=== PATIENT | female | born 1960 | race American Indian/Alaskan Native ===

== ENCOUNTER 2019-02-20 00:28 | Emergency (ER) | payer OTHER ==
--- NOTE | 2019-02-20 01:03 | XRay Report ---
PROCEDURE: XR CHEST ROUTINE 2V TECHNIQUE: PA and lateral chest radiographs were obtained. HISTORY: MANUEL COMPARISONS: None. FINDINGS: Heart: Normal. Mediastinum/Vessels: Normal. Lungs/Pleural space: Normal. Bony thorax: No acute osseous abnormality. IMPRESSION: Normal examination. This document is electronically signed by Justyna Strickland DO., February 20 2019 01:01:14 AM ET
[2019-02-20] MEDS ORDERED: PROVENTIL IH ONE (01:05)
[2019-02-20] MEDS ORDERED: ATROVENT IH ONE (01:05)
[2019-02-20] MEDS ORDERED: SOLU-Medrol IV ONE (01:05)
[2019-02-20] MEDS ORDERED: MAGNESIUM SULFATE 2GM/50ML 2 GM/50 ML BAG IV ONE (01:05)
--- NOTE | 2019-02-20 01:09 | Emergency Department Report ---
ED Shortness of Breath HPI - General Chief Complaint: Dyspnea/Respdistress Stated Complaint: MANUEL Time Seen by Provider: 02/20/19 01:00 Source: patient Mode of arrival: Ambulatory Limitations: No Limitations - History of Present Illness Initial Comments: 59-year-old female patient of asthma who presents to ED with complaint of shortness of breath 3 days. Patient says her symptoms began as an upper respiratory infection, which triggered her asthma. She reports productive cough, wheezing. Denies fever. Patient reports no relief at home with her in halers or breathing treatments. Reports tobacco use. PCP: johnny MEJIA Complaint: "asthma attack" -: days(s) (3) Severity: moderate Consistency: constant Improves With: nothing Worsens With: nothing Known History Of: asthma Context: recent URI Associated Symptoms: cough, sputum production - Related Data Home Oxygen Therapy: No Home Medications Medication Instructions Recorded Confirmed Last Taken ALBUTEROL Inhaler (OR & NICU) 2 puff IH QID PRN 07/22/16 07/22/16 07/22/16 [Proair] Allergies Allergy/AdvReac Type Severity Reaction Status Date / Time No Known Allergies Allergy Unverified 07/22/16 06:21 ED Review of Systems ROS: Stated complaint: MANUEL Other details as noted in HPI Comment: All other systems reviewed and negative Constitutional: denies: chills, fever Respiratory: cough, shortness of breath, wheezing Cardiovascular: denies: chest pain ED Past Medical Hx - Past Medical History Previous Medical History?: Yes Hx Hypertension: Yes Hx Asthma: Yes - Surgical History Past Surgical History?: Yes Additional Surgical History: x3; "stomach surgery" - Social History Smoking Status: Current Every Day Smoker Substance Use Type: None - Medications Home Medications: Home Medications Medication Instructions Recorded Confirmed Last Taken Type ALBUTEROL Inhaler (OR & NICU) 2 puff IH QID PRN 07/22/16 07/22/16 07/22/16 History [Proair] ED Physical Exam - General Limitations: No Limitations General appearance: alert - Head Head exam: Present: atraumatic, normocephalic - Eye Eye exam: Present: normal appearance - ENT ENT exam: Present: mucous membranes moist - Neck Neck exam: Present: normal inspection - Respiratory Respiratory exam: Present: respiratory distress, wheezes, decreased breath sounds - Cardiovascular Cardiovascular Exam: Present: normal rhythm, tachycardia - GI/Abdominal GI/Abdominal exam: Present: soft. Absent: distended - Extremities Exam Extremities exam: Present: normal inspection. Absent: pedal edema, calf tenderness - Neurological Exam Neurological exam: Present: alert, oriented X3 - Psychiatric Psychiatric exam: Present: normal affect, normal mood - Skin Skin exam: Present: warm, dry, intact, normal color ED Course Vital Signs 02/20/19 02/20/19 02/20/19 00:32 01:00 01:09 Temperature 98.5 F 98.6 F Pulse Rate 111 H 98 H 102 H Pulse Rate [ Anterior] Respiratory 18 17 19 Rate Respiratory Rate [Anterior] Blood Pressure 152/84 141/83 Blood Pressure 141/83 [Left] O2 Sat by Pulse 86 89 92 Oximetry 02/20/19 02/20/19 02/20/19 01:30 01:50 02:00 Temperature Pulse Rate 93 H 87 Pulse Rate [ 75 Anterior] Respiratory 28 H 20 Rate Respiratory 18 Rate [Anterior] Blood Pressure 156/91 131/79 Blood Pressure [Left] O2 Sat by Pulse 91 96 Oximetry 02/20/19 02/20/19 02/20/19 02:30 03:00 03:30 Temperature Pulse Rate 80 86 76 Pulse Rate [ Anterior] Respiratory 24 25 H 22 Rate Respiratory Rate [Anterior] Blood Pressure 143/78 145/90 145/84 Blood Pressure [Left] O2 Sat by Pulse 95 95 94 Oximetry 02/20/19 04:00 Temperature Pulse Rate 113 H Pulse Rate [ Anterior] Respiratory 20 Rate Respiratory Rate [Anterior] Blood Pressure 150/74 Blood Pressure [Left] O2 Sat by Pulse 95 Oximetry ED Medical Decision Making - Lab Data Result diagrams: 02/20/19 01:17 02/20/19 01:17 - EKG Data -: EKG Interpreted by Ar EKG shows normal: sinus rhythm, axis Rate: tachycardia (rate 106) - Radiology Data Radiology results: report reviewed, image reviewed - Medical Decision Making - pt feeling much better following nebs and meds - however, remains hypoxic at approx 88% RA - advised admission due to hypoxia, however pt refused - I explained risks of leaving, including worsening hypoxia, respiratory arrest, and ; at bedside and attempted to convince pt to stay - pt understands, states she cannot stay b/c she does not have insurance - AMA form signed, pt left prior to receiving any paperwork or prescriptions - Differential Diagnosis asthma, pneumonia, pulm edema Critical Care Time: Yes Critical care time in (mins) excluding proc time.: 35 Critical care attestation.: If time is entered above; I have spent that time in minutes in the direct care of this critically ill patient, excluding procedure time. Critical Care Time: 35 minutes ED Disposition Clinical Impression: Asthma with acute exacerbation, Hypoxia Disposition: LEFT AGAINST MED ADVICE Is pt being admited?: No Condition: Undetermined Referrals: CUCA DIGGS MD [Primary Care Provider] - 3-5 Days Forms: AMA Form
[2019-02-20 01:52] LABS: Basophils % (Auto) 0.4 % (0.0-1.8); Eosinophils # (Auto) 0.2 K/mm3 (0.0-0.4); Eosinophils % (Auto) 2.7 % (0.0-4.3); Hematocrit 40.6 % (30.3-42.9); Hemoglobin 13.2 gm/dl (10.1-14.3); Lymphocytes # (Auto) 1.9 K/mm3 (1.2-5.4); Lymphocytes % (Auto) 26.9 % (13.4-35.0); Mean Corpuscular HGB Conc 33 % (30-34); Mean Corpuscular Volume 86 fl (79-97); Monocytes # (Auto) 0.7 K/mm3 (0.0-0.8); Monocytes % (Auto) 10.3 % (0.0-7.3); Platelet Count 126 K/mm3 (140-440); Red Blood Count 4.72 M/mm3 (3.65-5.03); Red Cell Distribution Width 15.8 % (13.2-15.2)
[2019-02-20 02:06] LABS: BUN/Creatinine Ratio 14; Blood Urea Nitrogen 10 mg/dL (7-17); Calcium 9.1 mg/dL (8.4-10.2); Hemolysis Index 5
[2019-02-20 04:54] VITALS: BP 150/74
== END 2019-02-20 05:35 | disposition left against medical advice (07) ==
LOC: ED 00:28
DX: J45.901 Unspecified asthma with (acute) exacerbation (principal); R09.02 Hypoxemia; I10 Essential (primary) hypertension; F17.200 Nicotine dependence, unspecified, uncomplicated; Z98.890 Other specified postprocedural states
CPT/HCPCS: 36415; 71046; 80048; 85025; 93005; 93010; 94640; 96365; 96375; 99284; J2930; J3475